=== PATIENT | female | born 1950 | race Asian ===

== ENCOUNTER 2016-08-14 12:54 | Outpatient (RCR) | payer OTHER | END 2016-11-12 | LOC: WSOH | DX: S40.021A Contusion of right upper arm, initial encounter (principal); S30.0XXA Contusion of lower back and pelvis, initial encounter; W01.0XXA Fall on same level from slipping, tripping and stumbling without subsequent striking against object, initial encounter; Y99.0 Civilian activity done for income or pay ==

== ENCOUNTER → 2016-08-14 | Outpatient (REF) ==
[~2016-08-14] MED LIST: BONIVA150 MG PO; CALCIUM WITH VI1 TAB PO; LOVAZA1 GM PO; MOBIC15 MG PO; OMEGA 31000 MG PO; PRILOSEC 20MG20 MG PO; TOPROL XL 25MG25 MG PO; ZESTRIL40 MG PO
== END ==
LOC: WSOH 13:01
DX: Z01.89 Encounter for other specified special examinations (principal)